=== PATIENT | male | born 1995 | race Caucasian/White ===

== ENCOUNTER 2019-07-29 20:06 | Emergency (ER) | payer OTHER ==
[~2019-07-29] VITALS: Ht 177.8 cm; Wt 100.0 kg
[2019-07-29 20:39] VITALS: TEMP 98.3
[2019-07-29 21:17] LABS: STREP SCREEN NEGATIVE
[2019-07-29] MEDS ORDERED: ZYRTEC 10MG10 MG PO (21:41)
[2019-07-29 22:02] VITALS: BP 117/85; PULSE 108
== END 2019-07-29 22:02 | disposition home or self-care (01) ==
LOC: COL.ER 20:06
PROVIDERS: Family Medicine
DX: J02.8 Acute pharyngitis due to other specified organisms (principal)
CPT/HCPCS: J1100

== ENCOUNTER 2020-02-10 13:49 | Emergency (ER) | payer BC ==
[~2020-02-10] VITALS: Ht 175.3 cm; Wt 100.0 kg
[~2020-02-10 13:49] MED LIST: ZYRTEC 10MG10 MG PO
[2020-02-10 13:57] VITALS: PULSE 90; TEMP 98
[2020-02-10 14:39] VITALS: BP 139/90
== END 2020-02-10 14:47 | disposition home or self-care (01) ==
LOC: COL.ER 13:49
DX: R19.7 Diarrhea, unspecified (principal); R53.81 Other malaise; Z20.828 Contact with and (suspected) exposure to other viral communicable diseases

== ENCOUNTER 2020-05-19 08:58 | Emergency (ER) | payer BC ==
[~2020-05-19] VITALS: Ht 175.3 cm; Wt 95.5 kg
[2020-05-19 09:14] VITALS: TEMP 98.1
[2020-05-19 09:22] VITALS: BP 129/86; PULSE 87
== END 2020-05-19 09:23 | disposition home or self-care (01) ==
LOC: COL.ER 08:58
DX: R50.9 Fever, unspecified (principal); Z20.828 Contact with and (suspected) exposure to other viral communicable diseases